=== PATIENT | male | born 1955 | race Caucasian/White ===

== ENCOUNTER → 2021-04-04 02:34 | Outpatient (CLI) | payer MEDICARE, SELFPAY ==
[2021-04-04 16:55] LABS: SARS-CoV-2 RNA PCR Negative
== END ==
PROVIDERS: PCP Family Medicine; Visit Provider Family Medicine
DX: Z20.822 Contact with and (suspected) exposure to COVID-19 (principal); J02.9 Acute pharyngitis, unspecified
CPT/HCPCS: C9803; U0003; U0005

== ENCOUNTER 2024-03-21 05:56 | Day surgery (SDC) | payer MEDICARE, SELFPAY ==
[2024-02-15 15:18] VITALS: BMI 28.4
[2024-03-04 10:24] VITALS: BMI 27.1
[2024-03-21 06:18] VITALS: BMI 27.2
[2024-03-21 06:19] VITALS: BP 137/98; PULSE 72; RESP 18; TEMP 36.8; O2SAT 99
--- NOTE | 2024-03-21 06:47 | WPDANESEPPF ---
Anes - Initial Pre Proc Eval Procedure: Operation Date: 03/21/24 07:30 Proposed Procedures p Screening Colonoscopy - Davis Wilson DO Date/Time: 03/21/24 06:47 Surgeon: Davis Wilson DO Pre Op Diagnosis: Neoplasm Screening Patient Data Age: 69 Gender: M Height: 1.75 m Weight: 83.6 kg Last Vital Signs Temp 36.8 C 03/21/24 06:19 Pulse 72 03/21/24 06:19 Resp 18 03/21/24 06:19 BP 137/98 H 03/21/24 06:19 Pulse Ox 99 03/21/24 06:19 O2 Del Method Room Air 03/21/24 06:19 Allergies Allergy/AdvReac Type Severity Reaction Status Date / Time No Known Allergies Allergy Verified 03/21/24 06:12 Home Medications Medication Instructions Recorded Confirmed Type irbesartan 150 mg tablet 150 mg PO . q.a.m. #90 tabs 02/09/24 03/21/24 Rx pravastatin 10 mg tablet 10 mg PO DAILY #90 tabs 02/09/24 03/21/24 Rx Patient hx anesthesia problems: none Family hx anesthesia problems: none Results Review: All pre-operative results and documents have been reviewed as part of the pre-operative evaluation. [facility] Past Medical History Medical History (Updated 02/09/24 @ 08:29 by Roby Lam MD) At low risk for fall BMI 28.0-28.9,adult BMI 29.0-29.9,adult BMI 30.0-30.9,adult BMI 32.0-32.9,adult Bursitis of elbow Chronic low back pain with left-sided sciatica Chronic low back pain with right-sided sciatica Colon cancer screening normal colonoscopy 2014 with recheck in 10 years. Fit screening 05/23/2022 was negative. COVID-19 (06/30/23) tested positive 07/01/2023. Dyshidrotic eczema Encounter for hepatitis C screening test for low risk patient hepatitis-C screening was negative on 12/17/2022. Encounter for prostate cancer screening PSA 0.7 on 12/17/2022.PSA 0.9 on 01/21/2024. Encounter for wellness examination in adult Essential (primary) hypertension Eustachian tube dysfunction Mixed hyperlipidemia Total cholesterol 168, triglycerides 80, HDL 45, LDL 108 on 11/14/2021. Total cholesterol 146, triglycerides 62, HDL 47, LDL 86 on 12/17/2022. Cholesterol 146, triglycerides 57, HDL 46, LDL 88 on 01/21/2024. Nocturia PSA 0.7 on 11/14/2021. Overweight (BMI 25.0-29.9) Pharyngitis COVID test was negative on 04/04/2021 Rash and nonspecific skin eruption Family History Family History Father , 67 yrs Heart disease Grandparent , 72 yrs Heart disease Grandparent , 70 yrs Cerebrovascular accident Social History Social History Smoking status: Former smoker Tobacco type: cigarettes Second hand tobacco smoke exposure: No Alcohol intake: current Alcohol use details: rarely Substance use: never Substance use type: does not use Lack of Transportation: No Lack of Food: Never True Current Housing: I Have Housing Concerned About Future Housing: No Difficulty Paying Gas/Electric Bills: No Difficulty Paying for Meds: No Currently Unemployed: No Education: Master's Degree or Higher Difficulty w/ Childcare or Family Care: No Living arrangements: with family Gender identity (if verbalized by the patient): Male Spiritual care concerns: No Anes - Eval Final PreProcedure Day of Procedure 03/21/24 06:47 Patient weight: overweight Heart: regular rate and rhythm Lungs: clear to auscultation Airway: Mallampati scale class II Neurological: alert and oriented Last oral intake: >/= 8 hours ASA classification: II Emergent: no Anesthetic plan: proceed Anesthesia type and monitoring: general GIVS and standard monitoring Results Review: All pre-operative results and documents have been reviewed as part of the pre-operative evaluation. Informed Consent: The patient's anesthetic plan and its attendant risks and benefits were discussed with the patient/family/POA. Questions were solicited and answers provided to th
[2024-03-21] MEDS: LACTATED RINGERS 1,000 ML 150 ML IV CONT (07:00)
--- NOTE | 2024-03-21 07:30 | PM.IMHP ---
H&P: HPI History of Present Illness Date/Time: 03/21/24 07:30 Chief Complaint: Screening for colorectal cancer Narrative: 69 yo man presents for colonoscopy. Last colonoscopy was 10 years ago and normal. He denies hematochezia or melena. No fam hx colon cancer. Review of Systems Review of Systems: All systems reviewed & are unremarkable except as noted in HPI and below Constitutional: Constitutional: Denies chills, Denies fever(s), Denies headache(s) and Denies weight loss Eyes: Eyes: Denies change in vision ENT: Denies dizziness, Denies headache(s), Denies neck mass and Denies throat swelling Cardiovascular: Cardiovascular: Denies chest pain, Denies lightheadedness and Denies dyspnea Respiratory: Respiratory: Denies cough, Denies dyspnea and Denies wheezing Gastrointestinal: Gastrointestinal: Denies abdominal pain, Denies change in bowel habits, Denies nausea and Denies vomiting Genitourinary: Genitourinary: Denies hematuria and Denies dysuria Musculoskeletal: Musculoskeletal: Reports as per HPI Integumentary/Breasts: Skin/Breast: Reports as per HPI Neurologic: Denies dizziness and Denies headache(s) Allergic/Immunologic: Allergic/Immunologic: Denies throat swelling and Denies wheezing [facility] Past Medical History Medical History (Updated 02/09/24 @ 08:29 by Roby Lam MD) At low risk for fall BMI 28.0-28.9,adult BMI 29.0-29.9,adult BMI 30.0-30.9,adult BMI 32.0-32.9,adult Bursitis of elbow Chronic low back pain with left-sided sciatica Chronic low back pain with right-sided sciatica Colon cancer screening normal colonoscopy 2014 with recheck in 10 years. Fit screening 05/23/2022 was negative. COVID-19 (06/30/23) tested positive 07/01/2023. Dyshidrotic eczema Encounter for hepatitis C screening test for low risk patient hepatitis-C screening was negative on 12/17/2022. Encounter for prostate cancer screening PSA 0.7 on 12/17/2022.PSA 0.9 on 01/21/2024. Encounter for wellness examination in adult Essential (primary) hypertension Eustachian tube dysfunction Mixed hyperlipidemia Total cholesterol 168, triglycerides 80, HDL 45, LDL 108 on 11/14/2021. Total cholesterol 146, triglycerides 62, HDL 47, LDL 86 on 12/17/2022. Cholesterol 146, triglycerides 57, HDL 46, LDL 88 on 01/21/2024. Nocturia PSA 0.7 on 11/14/2021. Overweight (BMI 25.0-29.9) Pharyngitis COVID test was negative on 04/04/2021 Rash and nonspecific skin eruption Family History Family History Father , 67 yrs Heart disease Grandparent , 72 yrs Heart disease Grandparent , 70 yrs Cerebrovascular accident Social History Social History Smoking status: Former smoker Tobacco type: cigarettes Second hand tobacco smoke exposure: No Alcohol intake: current Alcohol use details: rarely Substance use: never Substance use type: does not use Lack of Transportation: No Lack of Food: Never True Current Housing: I Have Housing Concerned About Future Housing: No Difficulty Paying Gas/Electric Bills: No Difficulty Paying for Meds: No Currently Unemployed: No Education: Master's Degree or Higher Difficulty w/ Childcare or Family Care: No Living arrangements: with family Gender identity (if verbalized by the patient): Male Spiritual care concerns: No Meds Home Medications and Allergies Home Medications Medication Instructions Recorded Confirmed Type irbesartan 150 mg tablet 150 mg PO . q.a.m. #90 tabs 02/09/24 03/21/24 Rx pravastatin 10 mg tablet 10 mg PO DAILY #90 tabs 02/09/24 03/21/24 Rx Allergies Allergy/AdvReac Type Severity Reaction Status Date / Time No Known Allergies Allergy Verified 03/21/24 06:12 Vital Signs Vital Signs - 24 hr 03/21/24 06:19 Temperature 98.3 F Pulse Rate 72 Respiratory Rate 18 Blood Pressure 137/98 H
[2024-03-21 07:55] VITALS: BP 106/77; PULSE 66; RESP 15; O2SAT 92
[2024-03-21 08:05] VITALS: BP 121/82; PULSE 66; RESP 16; O2SAT 96
[2024-03-21 08:15] VITALS: BP 121/86; PULSE 62; RESP 16; O2SAT 98
--- NOTE | 2024-03-21 08:41 | WPDANESPN ---
Anes - Prog Note Post-Op Date/Time: 03/21/24 08:41 Cardiovascular status: normal Respiratory status: normal Airway patency: baseline Mental status: baseline Post-Op hydration status: normal Vital Signs: Last Vital Signs Temp 36.8 C 03/21/24 06:19 Pulse 62 03/21/24 08:15 Resp 16 03/21/24 08:15 BP 121/86 03/21/24 08:15 Pulse Ox 98 03/21/24 08:15 O2 Del Method Room Air 03/21/24 08:15 Pain Score (VAS): 0 I/O: Intake & Output 03/20/24 03/21/24 03/21/24 23:59 07:59 15:59 Intake Total 300 50 Balance 300 50 Post-procedural complaints: none Patient Feedback: Patient satisfied with anesthetic care. Other Findings: Patient vital signs back to baseline. Patient denies nausea and vomiting. Patient's pain under control. Patient OK for discharge.
== END 2024-03-21 08:23 | disposition home or self-care (01) ==
PROVIDERS: PCP Family Medicine; Visit Provider Surgery
PROC: 0DJD8ZZ Inspection of Lower Intestinal Tract, Via Natural or Artificial Opening Endoscopic (ICD-10-PCS; CPT 45378; principal; 2024-03-21 07:30)
DX: Z12.11 Encounter for screening for malignant neoplasm of colon (principal); K57.30 Diverticulosis of large intestine without perforation or abscess without bleeding
CPT/HCPCS: 45378

== ENCOUNTER 2024-04-28 09:25 | Outpatient (CLI) | payer MEDICARE, SELFPAY ==
--- NOTE | 2024-04-28 09:28 | EST_ITS ---
Patient Info Name: Rahul Hernandez Age: 69 years : 1955 Gender: Male Ht: 69 in Wt: 180 lbs BSA: 2.01 m2 Exam Date: 04/28/2024 10:20 AM Exam Location: [facility] Patient Status: Outpatient Admit Date: 04/28/2024 Staff Ordering Physician: Roby Lam MD Attending Provider: Roby Lam MD Exercise Technologist: Catrachita Pantoja [facility] Exercise Physician: James Alonso DO Exam Type: CA stress test treadmill Study Info Indications E78.2 - Mixed hyperlipidemia I10 - Essential (primary) hypertension A treadmill exercise stress test was performed. Summary 1. 1. Inconclusive Chevy exercise stress test for ischemic ST changes by ECG criteria due to development of LBBB during exercise. 2. 2. Good functional capacity, achieving 8.9 METs of workload. 3. 3. Baseline hypertension. 4. 4. Appropriate HR response to exercise. 5. 5. Appropriate HR recovery at 1 minute post exercise. 6. 6. No imaging with stress testing. 7. 7. Patient informed of the above results. Protocol: [place]vy Stress ECG Details Stage: REST Duration (min): 1 min : 49 sec Speed (mph): 0.0 Grade (%): 0 HR (bpm): 51 SBP (mmHg): 144 DBP (mmHg): 83 METS: --- Stage: REST Duration (min): 3 min : 48 sec Speed (mph): 0.0 Grade (%): 0 HR (bpm): 53 SBP (mmHg): 144 DBP (mmHg): 83 METS: --- Stage: STAGE 1 Duration (min): 1 min : 0 sec Speed (mph): 1.7 Grade (%): 10 HR (bpm): 80 SBP (mmHg): 144 DBP (mmHg): 83 METS: --- Stage: STAGE 1 Duration (min): 2 min : 0 sec Speed (mph): 1.7 Grade (%): 10 HR (bpm): 95 SBP (mmHg): 144 DBP (mmHg): 83 METS: --- Stage: STAGE 1 Duration (min): 3 min : 0 sec Speed (mph): 1.7 Grade (%): 10 HR (bpm): 101 SBP (mmHg): 182 DBP (mmHg): 84 METS: --- Stage: STAGE 2 Duration (min): 1 min : 0 sec Speed (mph): 2.5 Grade (%): 12 HR (bpm): 110 SBP (mmHg): 182 DBP (mmHg): 84 METS: --- Stage: STAGE 2 Duration (min): 2 min : 0 sec Speed (mph): 2.5 Grade (%): 12 HR (bpm): 121 SBP (mmHg): 182 DBP (mmHg): 83 METS: --- Stage: STAGE 2 Duration (min): 3 min : 0 sec Speed (mph): 2.5 Grade (%): 12 HR (bpm): 129 SBP (mmHg): 182 DBP (mmHg): 83 METS: --- Stage: STAGE 3 Duration (min): 1 min : 0 sec Speed (mph): 3.4 Grade (%): 14 HR (bpm): 137 SBP (mmHg): 196 DBP (mmHg): 84 METS: --- Stage: STAGE 3 Duration (min): 1 min : 0 sec Speed (mph): 3.4 Grade (%): 14 HR (bpm): 137 SBP (mmHg): 196 DBP (mmHg): 84 METS: --- Stage: RECOVERY Duration (min): 0 min : 59 sec Speed (mph): 0.0 Grade (%): 0 HR (bpm): 107 SBP (mmHg): 196 DBP (mmHg): 84 METS: --- Stage: RECOVERY Duration (min): 1 min : 59 sec Speed (mph): 0.0 Grade (%): 0 HR (bpm): 90 SBP (mmHg): 189 DBP (mmHg): 77 METS: --- Stage: RECOVERY Duration (min): 3 min : 0 sec Speed (mph): 0.0 Grade (%): 0 HR (bpm): 88 SBP (mmHg): 166 DBP (mmHg): 87 METS: --- Stage: RECOVERY Duration (min): 3 min : 59 sec Speed (mph): 0.0 Grade (%): 0 HR (bpm): 80 SBP (mmHg): 166 DBP (mmHg): 87 METS: --- Stage: RECOVERY Duration (min): 4 min : 59 sec Speed (mph): 0.0 Grade (%): 0 HR (bpm): 85 SBP (mmHg): 155 DBP (mmHg): 82 METS: --- Stage: RECOVERY Duration (min): 5 min : 59 sec Speed (mph): 0.0 Grade (%): 0 HR (bpm): 77 SBP (mmHg): 155 DBP (mmHg): 82 METS: --- Stage: RECOVERY Duration (min): 7 min : 0 sec Speed (mph): 0.0 Grade (%): 0 HR (bpm): 78 SBP (mmHg): 157 DBP (mmHg): 85 METS: --- Stage: RECOVERY Duration (min): 7 min : 6 sec Speed (mph): 0.0 Grade (%): 0 HR (bpm): 78 SBP (mmHg): 157 DBP (mmHg): 85 METS: --- Rest HR: 53 bpm Peak HR: 137 bpm Rest Sys BP: 144 mmHg Peak Sys BP: 196 mmHg Max Pred HR: 150 bpm % Max Pred HR: 91 % Target HR: 128 bpm Max RPP: 26,852 bpm*mmHg Puente Score: 4 Termination Reason: Reached target heart rate or workload Cardiac Symptoms: Shortness of breath Max ST Seg Deviation: -0.70 mm Total Time: 7 min : 0 sec Rest Cerda BP: 83 mmHg Peak Cerda BP: 84 mmHg Angina Score: None Total METS: 8.9 Resting ECG Sinus bradycardia. Stress ECG LBBB occurred at HR 110 bpm and returned to normal QRS post stress test at HR 83 bpm. Arrhythmias None. Report Signatures
== END 2024-04-28 09:26 | disposition home or self-care (01) ==
LOC: ANHCARD 09:27
PROVIDERS: PCP Family Medicine; Visit Provider Family Medicine
DX: E78.2 Mixed hyperlipidemia (principal); I10 Essential (primary) hypertension
CPT/HCPCS: 93017

== ENCOUNTER 2025-06-07 08:46 | Outpatient (CLI) | payer MEDICARE, SELFPAY ==
--- NOTE | ~2025-06-07 | MR_ITS ---
EXAMINATION: MR IAC wo/w con DATE: 06/07/2025 09:50 INDICATION: Other specified hearing loss. TECHNIQUE: Magnetic resonance imaging (MRI) of the brain, brainstem, and internal auditory canals was performed without and with 17 mL MultiHance intravenous contrast. COMPARISON: None. 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 There is a 12 mm enhancing mass in left internal auditory canal. There is no intracranial hemorrhage or acute infarction. The ventricles are normal in size. There is mucosal thickening in the paranasal sinuses. The orbits are normal. The mastoid air cells are normal. IMPRESSION: 1. 12 mm enhancing mass in left internal auditory canal, consistent with a vestibular schwannoma. 2. Old infarct in left cerebellum. Reviewed, dictated and finalized at location [facility] [employer] IMPRESSION: 1. 12 mm enhancing mass in left internal auditory canal, consistent with a vest ibular schwannoma. 2. Old infarct in left cerebellum.
== END 2025-06-07 08:47 | disposition home or self-care (01) ==
PROVIDERS: PCP Family Medicine; Visit Provider Otolaryngology
DX: H91.8X3 Other specified hearing loss, bilateral (principal); R93.0 Abnormal findings on diagnostic imaging of skull and head, not elsewhere classified
CPT/HCPCS: 70553; A9577